=== PATIENT | male | born 1975 | race Caucasian/White ===

== ENCOUNTER 2024-10-29 00:26 | Emergency (ER) | payer SELFPAY ==
[~2024-10-29] VITALS: Ht 188 cm; Wt 79.4 kg
[2024-10-29 01:51] VITALS: BP 104/74; TEMP 98.7; O2SAT 98
== END 2024-10-29 01:52 | disposition left against medical advice (07) ==
LOC: ER 00:43
DX: F10.129 Alcohol abuse with intoxication, unspecified (principal); Y90.9 Presence of alcohol in blood, level not specified
CPT/HCPCS: 82962-TC